=== PATIENT | male | born 1960 | race Caucasian/White ===

== ENCOUNTER 2021-05-06 09:21 | Emergency (ER) | payer OTHER ==
[~2021-05-06] VITALS: Ht 177.8 cm; Wt 90.7 kg
[~2021-05-06 09:21] MED LIST: IBUP800 PO; META800 PO; OXYACE5T PO
[2021-05-06] MEDS ORDERED: Prinivil10 MG PO (09:43)
[2021-05-08 11:11] LABS: LYME IGG/IGM AB <0.91 ISR (0.00-0.90)
== END 2021-05-06 12:10 | disposition home or self-care (01) ==
LOC: ER 09:21
PROVIDERS: Physician Assistant
DX: R20.0 Anesthesia of skin (principal); Z79.899 Other long term (current) drug therapy
CPT/HCPCS: 86140; 86592; 86618; 99284

== ENCOUNTER 2021-10-22 22:42 | Emergency (ER) | payer OTHER ==
[~2021-10-22] VITALS: Ht 180.3 cm; Wt 94.8 kg
[~2021-10-22 22:42] MED LIST changes: +Prinivil10 MG PO
[2021-10-23 00:06] LABS: BASOPHILS ABSOLUTE AUTO 0.05 K/mm3 (0.00-0.23); BASOPHILS PERCENT AUTO 1 % (0-2); EOSINOPHILS ABSOLUTE AUTO 0.34 K/mm3 (0.00-0.68); EOSINOPHILS PERCENT AUTO 3 % (0-6); Hematocrit 39.3 % (37.0-53.0); Hemoglobin 13.6 g/dL (13.5-17.5); IMMATURE GRAN ABSOLUTE AUTO 0.08 K/mm3 (0.00-0.10); IMMATURE GRAN PERCENT AUTO 1 % (0-1); LYMPHOCYTES ABSOLUTE AUTO 2.01 K/mm3 (0.84-5.20); LYMPHOCYTES PERCENT AUTO 20 % (21-46); MONOCYTES ABSOLUTE AUTO 0.62 K/mm3 (0.16-1.47); MONOCYTES PERCENT AUTO 6 % (4-13); Mean Corpuscular HGB 29.8 pg (26.0-34.0); Mean Corpuscular HGB Conc 34.6 g/dL (31.5-36.5); Mean Corpuscular Volume 86 fL (80-100); Mean Platelet Volume 9.5 fL (9.1-12.4); NEUTROPHILS ABSOLUTE AUTO 6.93 K/mm3 (1.96-9.15); NEUTROPHILS PERCENT AUTO 69 % (41-73); Platelet Count 383 K/mm3 (150-400); RDW Coefficient Variation 13.6 % (11.7-14.2); RDW Standard Deviation 43.1 fL (35.1-46.3); Red Blood Cell Count 4.56 M/mm3 (4.30-5.90); White Blood Cell Count 10.03 K/mm3 (4.00-11.30)
[2021-10-23 00:26] LABS: Alanine Aminotransfer (ALT/SGP 44 U/L (12-78); Albumin, Blood 2.9 g/dL (3.4-5.0); Albumin/Globulin Ratio 0.8 (0.8-1.8); Alk Phos 91 U/L (50-136); Anion Gap 4 mmol/L (6-16); Aspartate Aminotrans (AST/SGOT 33 U/L (12-37); Bilirubin, Total 0.2 mg/dL (0.1-1.0); Blood Urea Nitrogen 19 mg/dL (8-24); Bun/Creatinine Ratio 17.3 (12.0-20.0); CO2, Blood 28 mmol/L (21-32); Calcium, Blood 8.6 mg/dL (8.5-10.1); Chloride, Blood 107 mmol/L (98-108); Globulin, Blood 3.8 g/dL (2.2-4.0); Glomerular Filtration Rate >60 (60-); Glucose, Blood 118 mg/dL (70-99); Potassium, Blood 4.6 mmol/L (3.5-5.5); Sodium, Blood 139 mmol/L (136-145); Total Protein, Blood 6.7 g/dL (6.4-8.2); Troponin I <0.015 ng/mL (0.000-0.040)
== END 2021-10-23 02:04 | disposition home or self-care (01) ==
LOC: ER 22:42
PROVIDERS: Emergency Medicine
DX: I10 Essential (primary) hypertension (principal); F17.210 Nicotine dependence, cigarettes, uncomplicated
CPT/HCPCS: 36415; 71046; 80053; 83690; 84484; 85025; 93005; 93010

== ENCOUNTER 2021-10-25 13:08 | Emergency (ER) | payer OTHER ==
[~2021-10-25] VITALS: Ht 180.3 cm; Wt 95.2 kg
[2021-10-25] MEDS ORDERED: CEPH500 PO (14:26)
== END 2021-10-25 14:52 | disposition home or self-care (01) ==
LOC: ER 13:08
DX: I73.9 Peripheral vascular disease, unspecified (principal); F17.210 Nicotine dependence, cigarettes, uncomplicated

== ENCOUNTER 2022-01-21 08:24 | Day surgery (SDC) | payer OTHER ==
[~2022-01-21] VITALS: Ht 180.3 cm; Wt 92.0 kg
[~2022-01-21 08:24] MED LIST changes: +CEPH500 PO
[2022-01-21] MEDS ORDERED: ATOR40TA PO (09:03)
[2022-01-21] MEDS ORDERED: XARELTO2.5 M1 PO (09:03)
[2022-01-21] MEDS ORDERED: Aspir 8181 MG PO (09:04)
[2022-01-21] MEDS ORDERED: MECL25 PO (09:05)
[2022-01-21] MEDS ORDERED: CLOP75 PO (13:34)
--- NOTE | 2022-01-21 14:02 | NUR ---
PT UP AMBULATORY, L GROIN SITE STABLE. PT GETTING DRESSED AT THIS TIME.
--- NOTE | 2022-01-21 14:06 | NUR ---
PT DRESSED, SALINE LOCK REMOVED WITH CATHETER INTACT. GROIN SITE STABLE.
--- NOTE | 2022-01-21 14:32 | NUR ---
PT RIDE HERE, DISCHARGE GONE OVER WITH BOTH. BOTH VERBALIZE UNDERSTANDING OF INSTRUCTIONS. GROIN SITE REMAINS STABLE. PT TO PRIVATE VEHICLE PER W/C WITH ONE STAFF.
== END 2022-01-21 14:30 | disposition home or self-care (01) ==
LOC: MHTC 08:24
DX: I70.223 Atherosclerosis of native arteries of extremities with rest pain, bilateral legs (principal); Z89.411 Acquired absence of right great toe; M19.90 Unspecified osteoarthritis, unspecified site; I10 Essential (primary) hypertension; Z87.891 Personal history of nicotine dependence
CPT/HCPCS: 37225; 75625; 75716; 75774; 76937; 85347; 99152; 99153; C1714; C1725; C1760; C1769; C1884; C1887; C1894; C2623; J1644; J2250; J3010; J7030; J7050; Q9967

== ENCOUNTER 2022-03-25 08:19 | Day surgery (SDC) | payer OTHER ==
[~2022-03-25] VITALS: Ht 180.3 cm; Wt 93.2 kg
[~2022-03-25 08:19] MED LIST changes: +ATOR40TA PO; +Aspir 8181 MG PO; +CLOP75 PO; +MECL25 PO; +XARELTO2.5 M1 PO
--- NOTE | 2022-03-25 10:23 | NUR ---
PT BROUGHT TO RECOVERY ROOM VIA GURNEY IN SUPINE POSITION, REVERSE TRENDELENBERG. RIGHT FEMORAL ARTERIAL ACCESS SITE APPEARS SOFT NON TENDER WITH NO BLEEDING, OOZING, OR PAIN. PT APPEARS AOX4. HOB RAISED TO 15 DEGREES AND PT PROVIDED WITH MEAL TRAY, TOLERATED WITH NO DIFFICULTIES. CALL LIGHT WITHIN REACH. WILL CONTINUE TO MONITOR.
--- NOTE | 2022-03-25 11:18 | NUR ---
RIGHT GROIN SITE REMAINS AOFT AND NON-TENDER. NO BLEEDING OR OOZING AT SITE. PT EATING LUNCH, DENIES PAIN OR NEEDS. VSS, CALL LIGHT IN REACH.
--- NOTE | 2022-03-25 12:15 | NUR ---
IV DC'D, CATH INTACT. PT GIVEN DC INSTRUCTIONS AND FOLLOW UP INFO, VERBALIZED UNDERSTANDING. OUT TO CAR VIA WHEELCHAIR, ACCOMPANIED BY SIGNIFICANT OTHER. RIGHT GROIN SITE REMAINS SOFT AND NON-TENDER.
== END 2022-03-25 12:15 | disposition home or self-care (01) ==
LOC: MHTC 08:19
DX: I70.213 Atherosclerosis of native arteries of extremities with intermittent claudication, bilateral legs (principal); I10 Essential (primary) hypertension; Z87.891 Personal history of nicotine dependence
CPT/HCPCS: 37227; 75716; 75774; 76937; 85347; 99152; 99153; C1714; C1725; C1760; C1769; C1874; C1887; C1894; C2623; J0360; J1644; J2250; J3010; J7030; J7040; Q9967

== ENCOUNTER 2022-07-05 11:08 | Emergency (ER) | payer OTHER ==
[~2022-07-05] VITALS: Ht 180.3 cm; Wt 90.7 kg
== END 2022-07-05 17:29 | disposition home or self-care (01) ==
LOC: ER 11:08
DX: T78.3XXA Angioneurotic edema, initial encounter (principal); I10 Essential (primary) hypertension; Z88.8 Allergy status to other drugs, medicaments and biological substances; Z79.899 Other long term (current) drug therapy; Z79.01 Long term (current) use of anticoagulants; Z87.891 Personal history of nicotine dependence
CPT/HCPCS: 36415; 86900; 86901; J0171; J1100; J1200; J7030; P9059

== ENCOUNTER 2024-04-28 07:07 | Day surgery (SDC) | payer OTHER ==
[~2024-04-28] VITALS: Ht 180.3 cm; Wt 100.0 kg
[2024-04-28] VITALS (15 sets, daily range): BP systolic 132–177; BP diastolic 83–138
[~2024-04-28 07:07] MED LIST changes: +AMLO5 PO; +OLME20 PO
[2024-04-28] MEDS ORDERED: Heparin Sodium 1000 Units/ML 10ML MDV ONE (07:23)
[2024-04-28] MEDS ORDERED: NS 1,000 ML IV ONE ×2 (07:23→08:27)
[2024-04-28] MEDS ORDERED: Nitroglycerin 2 MG/20 ML BTL ONE (07:23)
[2024-04-28] MEDS ORDERED: NS 500 ML IV ONE (07:23)
[2024-04-28] MEDS ORDERED: FentaNYL Citrate 50 MCG/ML 2 ML Injection ONE ×2 (08:27→09:35)
[2024-04-28] MEDS ORDERED: Midazolam HCl 1MG / ML 2ML Vial ONE (08:27)
[2024-04-28] MEDS ORDERED: HydrALAZINE HCl 20 MG / ML 1ML Vial ONE (09:34)
--- NOTE | 2024-04-28 10:08 | NUR ---
pt to recovery from lab. pt a&o. groin site soft and non-tender per pt. no bleeding noted.
--- NOTE | 2024-04-28 10:15 | NUR ---
plavix script called into [facility].
--- NOTE | 2024-04-28 11:24 | NUR ---
groin site soft and non-tender per pt. no bleeding noted. pt sat to 30 degrees. pt given food tray, coffee, and water.
--- NOTE | 2024-04-28 11:57 | NUR ---
PT AMBULATED TO RESTROOM W/O ASSISTANCE. PT NOW BACK IN BED. GROIN SITE SOFT AND NON-TENDER PER PT. NO BLEEDING NOTED.
--- NOTE | 2024-04-28 12:43 | NUR ---
pt given dc instructions and verbalized understanding. iv out. pt changed. groin site soft and non-tender per pt. no bleeding noted. pt taken to parking lot via [facility]. ride waiting there to take pt home.
== END 2024-04-28 13:15 | disposition home or self-care (01) ==
LOC: MHTC NI 07:07 → MHTC 07:07 → MHTC NI 13:15
DX: I70.223 Atherosclerosis of native arteries of extremities with rest pain, bilateral legs (principal); I10 Essential (primary) hypertension; Z88.8 Allergy status to other drugs, medicaments and biological substances; Z87.891 Personal history of nicotine dependence
CPT/HCPCS: 37227; 75625; 75716; 75774; 76937; 99152; 99153; C1714; C1725; C1760; C1769; C1874; C1887; C1894; C2623; J0360; J1644; J2250; J3010; J7030; J7050; Q9967